=== PATIENT | male | born 1995 | race Two or more races ===

== ENCOUNTER 2025-08-24 11:28 | Emergency (ER) | payer MEDICAID, SELFPAY ==
[2025-08-24 11:29] VITALS: BMI 20.9
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
[2025-08-24 12:40] VITALS: BP 153/96; PULSE 65; RESP 18; TEMP 36.7; O2SAT 100; BMI 20.9
== END 2025-08-24 15:46 | disposition home or self-care (01) ==
PROVIDERS: Emergency Provider Emergency Medicine
DX: S90.31XA Contusion of right foot, initial encounter (principal); V03.10XA Pedestrian on foot injured in collision with car, pick-up truck or van in traffic accident, initial encounter; Y92.410 Unspecified street and highway as the place of occurrence of the external cause
CPT/HCPCS: 73630; 99282